=== PATIENT | male | born 1980 | race Caucasian/White ===

== ENCOUNTER 2021-10-15 14:41 | Emergency (ER) | payer OTHER ==
[~2021-10-15] VITALS: Ht 177.8 cm; Wt 109.6 kg
[2021-10-15] MEDS ORDERED: KETOROLAC 60 MG/2 ML VIAL. IM ONE (15:45)
[2021-10-15] MEDS ORDERED: HYDROcodone/APAP 5/325MG 1 TAB TABLET PO ONE (15:45)
--- NOTE | 2021-10-15 16:46 | RAD ---
Exam Date: 10/15/2021 3:[address] CERVICAL SPINE WO Indication: Reason: Midline cervical pain / Spl. Instructions: / History: . TECHNIQUE: CT scan of the cervical spine was performed without intravenous contrast. Coronal and sa gittal reconstructed images were reviewed as well. One or more of the following dose reduction techn iques were utilized: *Automated exposure control (AEC) *Adjustment of mA and/or kV according to patient size *Use of iterative reconstruction technique *CT scan done according to ALARA, or ALARA/IMAGE GENTLY FINDINGS: Alignment is maintained without spondylolisthesis. The vertebral body heights are maintained without acute fracture. Disc spaces are maintained. No severe osseous central canal stenosis. The cervico medullary junction appears normal. Atlanto-axial interval is within normal limits. The prevertebral soft tissues and visualized lung apices are normal. IMPRESSION: No acute fracture. No severe osseous central canal stenosis. Electronically signed by: Ladarius Unger MD (10/15/2021 4:44 PM) [facility]
--- NOTE | 2021-10-15 17:42 | PHYS DOC ---
Past Medical History Past Surgical History: Other Additional Past Surgical Histo: MASS REMOVED FROM UNDER L NIPPLE Smoking Status: Current Every Day Smoker Additional Information: 1 PPD Alcohol Use: Occasionally General Adult EDM: Chief Complaint: SHOUDLER HPI: HPI: Patient is a 41-year-old male who presents to the emergency department complaining of left upper extremity pain that radiates from his neck for the past 3 to 4 years. Patient reports he had an injury 3 or 4 years ago and has had off-and-on problems with discomfort of his upper extremities since. Patient reports he has a nerve conduction study with neurologist Dr. Wyman on December 262021. Patient states Dr. Perdomo is currently treating him with muscle relaxers, performed a cortisone injection and has neck this past , has him on NSAID therapy at home. Patient reports an ongoing 6 out of 10 pain, states he feels his nerve conduction test is too far out in the future and wants to know what is wrong. Patient denies chest pain, chest or nasal congestion, denies headaches, dizziness, syncopal or near syncopal episodes. Patient denies nausea, vomiting, diarrhea. Patient denies recent injury to his neck or back. Patient denies other physical complaints or physical concerns. Review of Systems: Review of Systems: 14 body systems of review of systems have been reviewed. See HPI for pertinent positives and negative responses, otherwise all other systems are negative, nonpertinent or noncontributory. Constitutional: Negative except as outlined in HPI above. Skin: Negative except as outlined in HPI above. Eyes: Negative except as outlined in HPI above. HENT: Negative except as outlined in HPI above. Respiratory: Negative except as outlined in HPI above. Cardiovascular: Negative except as outlined in HPI above. GI: Negative except as outlined in HPI above. : Negative except as outlined in HPI above. Musculoskeletal: Negative except as outlined in HPI above. Integument: Negative except as outlined in HPI above. Neurologic: Negative except as outlined in HPI above. Endocrine: Negative except as outlined in HPI above. Lymphatic: Negative except as outlined in HPI above. Psychiatric: Negative except as outlined in HPI above. Heart Score: C/O Chest Pain: No Risk Factors: Risk Factors: DM, Current or recent (<one month) smoker, HTN, HLP, family history of CAD, obesity. Risk Scores: Score 0 - 3: 2.5% MACE over next 6 weeks - Discharge Home Score 4 - 6: 20.3% MACE over next 6 weeks - Admit for Clinical Observation Score 7 - 10: 72.7% MACE over next 6 weeks - Early Invasive Strategies Current Medications: Current Medications Medications (Trade) Dose Ordered Sig/Crystal Start Time Stop Time Status Last Admin Dose Admin Acetaminophen/ Hydrocodone Bitart (Lortab 5/325) 1 tab 1X ONCE 10/15/21 15:45 10/15/21 15:46 DC 10/15/21 16:11 1 TAB Ketorolac Tromethamine (Toradol Im) 60 mg 1X ONCE 10/15/21 15:45 10/15/21 15:46 DC 10/15/21 16:12 60 MG Allergies: Allergies: Allergies Coded Allergies Type Severity Reaction Last Updated Verified No Known Drug Allergies 10/15/21 No Physical Exam: PE: Constitutional: Well developed, well nourished, no acute distress, non-toxic appearance. 41-year-old male in no apparent distress. HENT: Normocephalic, atraumatic. Oropharynx moist, no deep tissue infectious process appreciated, bilateral TMs intact and within normal limits. Eyes: Conjunctiva normal, no discharge. Neck: Normal range of motion, no stridor. No nuchal rigidity, no meningismus signs. Cardiovascular: No cyanosis appreciated, distal cap refill less than 2 seconds. Lungs & Thorax: Patient is in no respiratory distress, no audible adventitious lung sounds appreciated. Abdomen: Nontender, no abnormalities noted. Skin: Warm, dry, no erythema, no rash. Back: No tenderness, no deformities. Extremities: No tenderness, no cyanosis, no clubbing, ROM intact, no edema. Neurologic: Alert and oriented X 3, normal motor function, normal sensory function, no focal deficits noted. Psychologic: Affect normal, judgement normal, mood normal. Current Patient Data: Vital Signs: Vital Signs Date Time Temp Pulse Resp B/P (MAP) Pulse Ox O2 Delivery O2 Flow Rate FiO2 10/15/21 16:11 18 Room Air 10/15/21 14:51 99.0 103 156/93 (114) 97 99.0 EKG: EKG: [] Radiology/Procedures: Radiology/Procedures: PROCEDURE: CT CERVICAL SPINE WO CONTRAST Exam Date: 10/15/2021 3:[address] CERVICAL SPINE WO Indication: Reason: Midline cervical pain / Spl. Instructions: / History: . TECHNIQUE: CT scan of the cervical spine was performed without intravenous contrast. Coronal and sagittal reconstructed images were reviewed as well. One or more of the following dose reduction techniques were utilized: *Automated exposure control (AEC) *Adjustment of mA and/or kV according to patient size *Use of iterative reconstruction technique *CT scan done according to ALARA, or ALARA/IMAGE GENTLY FINDINGS: Alignment is maintained without spondylolisthesis. The vertebral body heights are maintained without acute fracture. Disc spaces are maintained. No severe osseous central canal stenosis. The cervicomedullary junction appears normal. Atlanto-axial interval is within normal limits. The prevertebral soft tissues and visualized lung apices are normal. IMPRESSION: No acute fracture. No severe osseous central canal stenosis. Electronically signed by: Ladarius Unger MD (10/15/2021 4:44 PM) [facility] Course & Med Decision Making: Course & Med Decision Making Pertinent Labs and Imaging studies reviewed. (See chart for details) 41-year-old male, vital signs reviewed, presents to the emergency department concerning left upper extremity shoulder discomfort that has been intermittent over the past 3 or 4 years. Patient's physical examination consistent with cervical radiculopathy, will order CT C-spine, will give pain medications, patient had steroid injection 5 days ago, is currently taking muscle relaxers, IM NSAID and p.o. pain medication. CT scan of cervical spine unremarkable, upon reevaluation of the patient, patient states his pain is doing better since receiving pain medication. Discussed with patient continue all home medications as prescribed by his primary care physician Dr. Perdomo, keep neurology appointment with Dr. Wyman this coming December, return to the ER precautions or concerns were reviewed, discussed with patient to make appointment to see Dr. Perdomo for further evaluation and consideration for outpatient MRI. patient gave verbal understanding of and is amenable to ED discharge planning. Discussed with the patient all findings and diagnostic testing as well as the need to follow-up with their primary care provider for further evaluation and treatment or return to the ED if any new or worsening symptoms. Strict return precautions were also discussed at length, the patient voiced understanding and agreement with the discharge planning. The patient was nontoxic in appearance, in no apparent distress, and hemodynamically stable at the time of disposition. Dragon Disclaimer: Dragon Disclaimer: This electronic medical record was generated, in whole or in part, using a voice recognition dictation system. Departure Departure Impression: Primary Impression: Cervical radiculopathy Disposition: HOME / SELF CARE / HOMELESS Condition: GOOD Referrals: NO PCP (PCP) NORM PERDOMO MD Patient Instructions: Cervical Radiculopathy Additional Instructions: You were seen today in the emergency department for pain of your left arm. You had disclosed the symptoms have been off and on for the past 3 to [address] scan was performed today of your neck that did not show concerning findings that would warrant immediate admission to the hospital or immediate attention by a specialist. However it is important that you continue to take your home medications, keep your appointment with the neurologist Dr. Wyman coming up in December. Please call Dr. Perdomo tomorrow for an appointment to be seen for ongoing symptoms, discuss possible outpatient MRI for ongoing evaluation of your symptoms. Return to the emergency department for worsening symptoms or other concerns. Thank you for visiting our Emergency Department. It was a pleasure taking care of you today in the emergency department and we appreciate you trusting us with your care. If any additional problems come up don't hesitate to return to visit us. Please follow up with your primary care provider so they can plan additional care if needed and know about the problem that you had. If symptoms worsen come back to the Emergency Department. Any concerning symptoms that start such as chest pain, shortness of air, weakness or numbness on one side of the body, running high fevers or any other concerning symptoms return to the ER. EMERGENCY DEPARTMENT GENERAL DISCHARGE INSTRUCTIONS Thank you for coming to [facility] Emergency Department (ED) today and trusting us with you care. We trust that you had a positive experience in our Emergency Department. If you wish to speak to the department management, you may call the Director at [phone]. YOUR FOLLOW UP INSTRUCTIONS ARE FOLLOWS: 1. Do you have a private Doctor? If you do not have a private doctor, please ask for a resource list of physicians or clinics that may be able to assist you with follow up care. 2. The Emergency Physicain has interpreted your x-rays. The X-Ray specialist will also review them. If there is a change in the findings, you will be notified in 48 h ours when at all possible. 3. A lab test or culture has been done, your results will be reviewed and you will be notified if you need a change in treatment. ADDITIONAL INSTRUCTIONS AND INFORMATION: 1. Your care today has been supervised by a physician who is specially trained in emergency care. Many problems require more than one evaluation for a complete diagnosis and treatment. We recommend that you schedule your follow up appointment as recommended to ensure complete treatment of you illness or injury. If you are unable to obtain follow up care and continue to have a problem, or if your condition worsens, we recommend that you return to the ED. 2. We are not able to safely determine your condition over the phone nor are we able to give sound medical advice over the phone. For these safety reasons, if you call for medical advice we will ask you to come to the ED for further evaluation. 3. If you have any questions regarding these discharge instructions please call the ED at [phone]. SAFETY INFORMATION: In the interest of safety, wellness, and injury prevention; we encourage you to wear your sealbelt, if you smoke; quite smoking, and we encourage family to use a protective helmet for bicycling and other sporting events that present an increased risk for head injury. IF YOUR SYMPTOMS WORSEN OR NEW SYMPTOMS DEVELOP, OR YOU HAVE CONCERNS ABOUT YOUR CONDITION; OR IF YOUR CONDITION WORSENS WHILE YOU ARE WAITING FOR YOUR FOLLOW UP APPOINTMENT; EITHER CONTACT YOUR PRIMARY CARE DOCTOR, THE PHYSICIAN WHOSE NAME AND NUMBER YOU WERE GIVEN, OR RETURN TO THE ED IMMEDIATELY. CARISA DE APRN Oct 15, 2021 17:42
[2021-10-15 17:54] VITALS: BP 139/82
== END 2021-10-15 17:54 | disposition home or self-care (01) ==
LOC: ER 14:41
DX: M54.12 Radiculopathy, cervical region (principal); F17.200 Nicotine dependence, unspecified, uncomplicated
CPT/HCPCS: 72125; 96372; 99284; J1885